=== PATIENT | female | born 1995 | race Caucasian/White ===

== ENCOUNTER 2018-07-03 23:07 | Emergency (ER) | payer BC ==
[~2018-07-03] VITALS: Ht 165.1 cm; Wt 72.7 kg
[2018-07-03 23:12] VITALS: BP 137/87; TEMP 98
[2018-07-03] MEDS ORDERED: VYVANSE70 MG PO (23:15)
[2018-07-03 23:53] VITALS: PULSE 85
== END 2018-07-03 23:54 | disposition home or self-care (01) ==
LOC: COL.ER 23:07
DX: S61.012A Laceration without foreign body of left thumb without damage to nail, initial encounter (principal); W26.0XXA Contact with knife, initial encounter; Y92.009 Unspecified place in unspecified non-institutional (private) residence as the place of occurrence of the external cause

== ENCOUNTER → 2020-01-20 | Outpatient (CLI) | payer BC ==
[~2020-01-20] MED LIST: VYVANSE70 MG PO
== END ==
LOC: ZCOL.LAB 16:21
DX: Z20.828 Contact with and (suspected) exposure to other viral communicable diseases (principal)